=== PATIENT | female | born 1945 | race Caucasian/White ===

== ENCOUNTER 2017-06-14 09:43 | Emergency (ER) | payer MEDICARE, OTHER ==
[2017-06-14] MEDS ORDERED: Ketorolac 30 MG/ML SDV IVPUSH ONE (10:27)
[2017-06-14] MEDS ORDERED: Ketorolac 30 MG/ML SDV ONE (10:57)
[2017-06-14] MEDS ORDERED: Diatrizoate Meglumine/Diatrizoate Sodium 37% 30 ML Bottle PO SCH (11:00)
[2017-06-14] MEDS ORDERED: HYDROmorphone 2 MG/ML Syringe IVPUSH ONE ×2 (11:21→12:50)
[2017-06-14] MEDS ORDERED: Ondansetron 4 MG/2 ML SDV IVPUSH ONE ×2 (11:22→11:54)
[2017-06-14] MEDS ORDERED: Sodium Chloride 0.9% 1,000 ML IV ONE (11:23)
[2017-06-14] MEDS ORDERED: HYDROmorphone 2 MG/ML Syringe ONE ×2 (11:26→11:54)
[2017-06-14] MEDS: Ondansetron 4 MG/2 ML SDV ONE ×2 (11:54→12:57)
[2017-06-14] MEDS ORDERED: Ondansetron 4 MG/2 ML SDV ONE (11:54)
[2017-06-14] MEDS ORDERED: Piperacillin/Tazobactam 3.375 GM in Sodium Chloride 0.9% 100 ML IV SCH (13:45)
[2017-06-14] MEDS ORDERED: Pantoprazole 40 MG Vial ONE (14:09)
[2017-06-14] MEDS ORDERED: Pantoprazole 80 MG in Sodium Chloride 0.9% 100 ML IV ONE (14:10)
--- NOTE | 2017-06-14 14:31 | EDM.PDOC ---
[id number]: ABD pain Time Seen by Provider: 06/14/17 10:05 Source of Information: Reports: Patient History Limitations: Reports: No Limitations - History of Present Illness INITIAL COMMENTS - FREE TEXT/NARRATIVE: This is a 72yo F here for severe abdominal pain for the past 18hours. Patient states the pain is extremely severe and is writhing in pain. She has the pain every 3-4 minutes and it fluctuates and then improves in colicky fashion. Patient has never had this 10/10 pain of the lower abdomen before. She feels it is diffuse. Patient has not been eating well and has thrown up the past 18 hours. She denies prior abdominal issues or surgery but has a diagnosis of diverticulitis. Patient doctors in [place] and has been to [facility] before. Patient is alert and oriented in severe pain. Onset Date: 06/13/17 Onset Time: 19:00 (This is when the severe pain started but the mild pain and discomfort was 3 days ago) Duration: Colic, Getting Worse, Intermittent, Recurring, Waxing/Waning Location: Reports: Abdomen Quality: Reports: Ache, Sharp, Stabbing Severity: Severe Improves with: Reports: None Worsens with: Reports: None Associated Symptoms: Reports: Loss of Appetite, Nausea/Vomiting Bilateral Lower Abdomen Pain Score (Numeric/FACES): 5 - Related Data Allergies Allergy/AdvReac Type Severity Reaction Status Date / Time morphine Allergy Itching Verified 06/14/17 10:59 Morpholine Analogues Allergy Itching Verified 06/14/17 10:59 Sulfa (Sulfonamide Allergy itchings Verified 06/14/17 10:58 Antibiotics) and swollen throat Home Meds: Home Meds Allopurinol [Zyloprim] 300 mg PO BID 06/14/17 [History] Aspirin 81 mg PO DAILY 06/14/17 [History] Cetirizine [ZyrTEC] 10 mg PO DAILY 06/14/17 [History] Cyclobenzaprine [Flexeril] 10 mg PO TID PRN 06/14/17 [History] Enalapril [Vasotec] 5 mg PO DAILY 06/14/17 [History] Gabapentin [Neurontin] 300 mg PO BID 06/14/17 [History] Ketoprofen 200 mg PO DAILY 06/14/17 [History] Liraglutide [Victoza] 1.8 mg SUBCUT DAILY 06/14/17 [History] [place]-3 Fatty Acids [Maxepa] 1,000 mg PO DAILY 06/14/17 [History] Polyethylene Glycol 3350 [MiraLAX] 17 gm PO DAILY PRN 06/14/17 [History] Simvastatin [Zocor] 20 mg PO BEDTIME 06/14/17 [History] Triamcinolone Acetonide [Triamcinolone Acetonide 0.5%] 1 TOP BID 06/14/17 [ History] Triamterene/Hydrochlorothiazid [Triamterene-HCTZ 37.5-25 MG] 2 cap PO DAILY [History] metFORMIN [Glucophage XR] 500 mg PO BIDMEALS 06/14/17 [History] Past Medical History HEENT History: Reports: Cataract Cardiovascular History: Reports: Hypertension Gastrointestinal History: Reports: Diverticulosis Genitourinary History: Reports: UTI, Recurrent [employer] History: Reports: Dysfunctional Uterine Bleeding Musculoskeletal History: Reports: Arthritis Endocrine/Metabolic History: Reports: Diabetes, Type II Dermatologic History: Reports: Other (See Below) Other Dermatologic History: 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 - Infectious Disease History Infectious Disease History: Reports: C-Difficile - Past Surgical History HEENT Surgical History: Reports: Cataract Surgery GI Surgical History: Reports: Colonoscopy Endocrine Surgical History: Reports: None Musculoskeletal Surgical History: Reports: Joint Replacement, Knee Replacement, Other (See Below) Other Musculoskeletal Surgeries/Procedures:: Hardware in back, maria d TKA, Fx ankle with sx Social & Family History - Family History Family Medical History: Noncontributory ED ROS GENERAL - Review of Systems Review Of Systems: ROS reveals no pertinent complaints other than HPI. ED EXAM, GI/ABD - Physical Exam Exam: See Below Exam Limited By: No Limitations General Appearance: Alert, WD/WN, Severe Distress, Obese Eyes: Bilateral: EOMI Ears: Normal External Exam Nose: Normal Inspection Throat/Mouth: Normal Inspection, Normal Lips, Normal Teeth Head: Atraumatic, Normocephalic Neck: Normal Inspection, Supple, Non-Tender Respiratory/Chest: No Respiratory Distress, Lungs Clear, Normal Breath Sounds Cardiovascular: Normal Peripheral Pulses, Regular Rate, Rhythm GI/Abdominal Exam: Soft (but lots of subcutaneous fat), Tender, Abnormal Bowel Sounds (left side decreased with right side increased). No: Mass Extremities: Normal Inspection Neurological: Alert, Oriented Psychiatric: Normal Affect, Normal Mood Skin Exam: Warm, Dry, Intact Course - Vital Signs Last Recorded V/S: Last Vital Signs Temp 35.5 C 06/14/17 14:35 Pulse 122 H 06/14/17 14:35 Resp 20 06/14/17 14:35 BP 84/46 L 06/14/17 14:35 Pulse Ox 99 06/14/17 14:35 - Orders/Labs/Meds Labs: Laboratory Tests 06/14/17 06/14/17 06/14/17 Range/Units 10:45 10:45 10:45 WBC 17.5 H (4.0-11.0) K/uL RBC 3.52 L (3.80-5.80) M/uL Hgb 10.5 L (11.5-16.5) g/dL Hct 32.2 L (37.0-47.0) % MCV 92 (76-96) fL MCH 29.8 (27.0-32.0) pg MCHC 32.6 (31.0-35.0) g/dL RDW 14.9 (11.0-16.0) % Plt Count 287 (150-500) K/uL MPV 10.2 H (6.0-10.0) fL Neut % (Auto) 79.8 H (45.0-70.0) % Lymph % (Auto) 12.5 L (20.0-40.0) % [place] % (Auto) 7.3 (3.0-10.0) % Eos % (Auto) 0.2 L (1.0-5.0) % Baso % (Auto) 0.2 (0.0-0.5) % Neut # (Auto) 13.99 H (2.00-7.50) K/uL Lymph # (Auto) 2.19 (1.50-4.00) K/uL [place] # (Auto) 1.28 H (0.20-0.80) K/uL Eos # (Auto) 0.04 (0.04-0.40) K/uL Baso # (Auto) 0.04 (0.02-0.10) K/uL PT 9.9 (9.0-11.5) sec INR 1.0 (1.0-3.5) Sodium 139 (136-145) mmol/L Potassium 4.4 (3.5-5.1) mmol/L Chloride 103 (98-107) mmol/L Carbon Dioxide 19.7 L (21.0-32.0) mmol/L Anion Gap 20.7 H (5.0-15.0) mmol/L BUN 60 H* (8-26) mg/dL Creatinine 1.15 H (0.55-1.02) mg/dL Est Cr Clr Drug Dosing 40.38 mL/min Estimated GFR (MDRD) 47 L (>60) MLS/MIN BUN/Creatinine Ratio 52.2 H (6-25) Glucose 305 H (74-100) mg/dL Lactic Acid (0.90-1.70) mmol/L Calcium 8.9 (8.5-10.1) mg/dL Total Bilirubin 0.5 (0.0-1.0) mg/dL AST 17 (15-37) U/L ALT 33 (12-78) U/L Alkaline Phosphatase 54 (46-116) U/L Total Protein 6.8 (6.4-8.2) g/dL Albumin 3.2 L (3.4-5.0) g/dL Globulin 3.6 (2.2-4.2) g/dL Albumin/Globulin Ratio 0.9 (0.8-2.0) Lipase 320 (73-393) U/L Urine Color Urine Appearance (CLEAR) Urine pH (5.0-8.0) Ur Specific [place] (1.003-1.030) Urine Protein (NEGATIVE) mg/dL Urine Glucose (UA) (NEGATIVE) mg/dL Urine Ketones (NEGATIVE) mg/dL Urine Occult Blood (NEGATIVE) Urine Nitrite (NEGATIVE) Urine Bilirubin (NEGATIVE) Urine Urobilinogen (0.2-1.0) E.U./dL Ur Leukocyte Esterase (NEGATIVE) Urine RBC /HPF Urine WBC /HPF Ur Squamous Epith Cells /HPF Urine Bacteria /HPF Hyaline Casts /HPF 06/14/17 06/14/17 Range/Units 10:45 11:05 WBC (4.0-11.0) K/uL RBC (3.80-5.80) M/uL Hgb (11.5-16.5) g/dL Hct (37.0-47.0) % MCV (76-96) fL MCH (27.0-32.0) pg MCHC (31.0-35.0) g/dL RDW (11.0-16.0) % Plt Count (150-500) K/uL MPV (6.0-10.0) fL Neut % (Auto) (45.0-70.0) % Lymph % (Auto) (20.0-40.0) % [place] % (Auto) (3.0-10.0) % Eos % (Auto) (1.0-5.0) % Baso % (Auto) (0.0-0.5) % Neut # (Auto) (2.00-7.50) K/uL Lymph # (Auto) (1.50-4.00) K/uL [place] # (Auto) (0.20-0.80) K/uL Eos # (Auto) (0.04-0.40) K/uL Baso # (Auto) (0.02-0.10) K/uL PT (9.0-11.5) sec INR (1.0-3.5) Sodium (136-145) mmol/L Potassium (3.5-5.1) mmol/L Chloride (98-107) mmol/L Carbon Dioxide (21.0-32.0) mmol/L Anion Gap (5.0-15.0) mmol/L BUN (8-26) mg/dL Creatinine (0.55-1.02) mg/dL Est Cr Clr Drug Dosing mL/min Estimated GFR (MDRD) (>60) MLS/MIN BUN/Creatinine Ratio (6-25) Glucose (74-100) mg/dL Lactic Acid 6.08 H (0.90-1.70) mmol/L Calcium (8.5-10.1) mg/dL Total Bilirubin (0.0-1.0) mg/dL AST (15-37) U/L ALT (12-78) U/L Alkaline Phosphatase (46-116) U/L Total Protein (6.4-8.2) g/dL Albumin (3.4-5.0) g/dL Globulin (2.2-4.2) g/dL Albumin/Globulin Ratio (0.8-2.0) Lipase (73-393) U/L Urine Color Yellow Urine Appearance Clear (CLEAR) Urine pH 5.5 (5.0-8.0) Ur Specific [place] 1.015 (1.003-1.030) Urine Protein Negative (NEGATIVE) mg/dL Urine Glucose (UA) Negative (NEGATIVE) mg/dL Urine Ketones 40 H (NEGATIVE) mg/dL Urine Occult Blood Negative (NEGATIVE) Urine Nitrite Positive H (NEGATIVE) Urine Bilirubin Negative (NEGATIVE) Urine Urobilinogen 0.2 (0.2-1.0) E.U./dL Ur Leukocyte Esterase Small H (NEGATIVE) Urine RBC Not seen /HPF Urine WBC 10-20 H /HPF Ur Squamous Epith Cells Moderate /HPF Urine Bacteria Moderate H /HPF Hyaline Casts Few /HPF Meds: Medications Discontinued Medications Generic Name Dose Route Start Last Admin Trade Name Freq PRN Reason Stop Dose Admin Diatrizoate Meglum/Diatrizoate Sod 30 ml 06/14/17 11:00 06/14/17 11:08 Gastrografin 37% PO 30 ml . DIRECTED EMILY Administration Hydromorphone HCl 1 mg 06/14/17 11:21 06/14/17 11:23 Dilaudid IVPUSH 06/14/17 11:22 1 mg ONETIME ONE Administration Hydromorphone HCl Confirm 06/14/17 11:26 06/14/17 11:35 Dilaudid Administered 06/14/17 11:27 Not Given Dose 2 mg .ROUTE .STK-MED ONE Hydromorphone HCl Confirm 06/14/17 11:54 06/14/17 12:21 Dilaudid Administered 06/14/17 11:55 Not Given Dose 2 mg .ROUTE .STK-MED ONE Hydromorphone HCl 1 mg 06/14/17 12:50 06/14/17 12:50 Dilaudid IVPUSH 06/14/17 12:51 1 mg ONETIME ONE Administration Sodium Chloride 1,000 mls @ 350 mls/hr 06/14/17 11:23 06/14/17 14:58 Normal Saline IV 06/14/17 14:14 Infused .BOLUS ONE Infusion Piperacillin Sod/Tazobactam 100 mls @ 100 mls/hr 06/14/17 13:45 06/14/17 14: 31 Sod 3.375 gm/ Sodium Chloride IV 100 mls/hr Q6H EMILY Administration Pantoprazole Sodium 80 mg/ 100 mls @ 200 mls/hr 06/14/17 14:10 06/14/17 14:13 Sodium Chloride IV 06/14/17 14:39 Not Given .BOLUS ONE Ketorolac Tromethamine 30 mg 06/14/17 10:27 06/14/17 10:56 Toradol IVPUSH 06/14/17 10:28 30 mg ONETIME ONE Administration Ketorolac Tromethamine Confirm 06/14/17 10:57 06/14/17 10:56 Toradol Administered 06/14/17 10:58 Not Given Dose 30 mg .ROUTE .STK-MED ONE Ondansetron HCl 8 mg 06/14/17 11:22 06/14/17 11:33 Zofran IVPUSH 06/14/17 11:23 8 mg ONETIME ONE Administration Ondansetron HCl Confirm 06/14/17 11:35 06/14/17 12:57 Zofran Administered 06/14/17 11:36 Not Given Dose 8 mg .ROUTE .STK-MED ONE Ondansetron HCl Confirm 06/14/17 11:54 06/14/17 12:56 Zofran Administered 06/14/17 11:55 Not Given Dose 4 mg .ROUTE .STK-MED ONE Ondansetron HCl 4 mg 06/14/17 11:54 06/14/17 12:56 Zofran IVPUSH 06/14/17 11:55 4 mg ONETIME ONE Administration Pantoprazole Sodium Confirm 06/14/17 14:09 06/14/17 14:13 Protonix Iv Administered 06/14/17 14:10 80 mg Dose Administration 80 mg .ROUTE .STK-MED ONE - Re-Assessments/Exams Free Text/Narrative Re-Assessment/Exam: 06/14/17 1415 Patient had a new episode of Darker colored hematemesis. This is a new finding. BP stable but low. Continuing bolus of 2nd bag 1000mL of 0.9% NS at this time. Called [facility] and informed Dr. Miner of update - states he has discussed case with IM and ICU and awaiting her arrival. IV protonix 80mg to be given. Departure - Departure Time of Disposition: 15:00 Disposition: DC/Tfer to Acute Hospital 02 Condition: Critical Clinical Impression: Hematemesis with nausea, Acute abdomen, Mass of stomach, Sudden onset of severe abdominal pain, Elevated lactic acid level, Renal dysfunction Elevated WBC count Qualifiers: Leukocytosis type: unspecified Qualified Code(s): D72.829 - Elevated white blood cell count, unspecified Anemia Qualifiers: Anemia type: other cause Other causes of anemia: other cause, not classified Qualified Code(s): D64.89 - Other specified anemias Diabetes Qualifiers: Diabetes mellitus type: type 2 Diabetes mellitus complication status: without complication Diabetes mellitus lobsterman insulin use: without mcc use Qualified Code(s): E11.9 - Type 2 diabetes mellitus without complications UTI (urinary tract infection) Qualifiers: Urinary tract infection type: site unspecified Hematuria presence: without hematuria Qualified Code(s): N39.0 - Urinary tract infection, site not specified - Discharge Information Referrals: PCP,None [Primary Care Provider] - Forms: ED Department Discharge, ED Return to Work/School Form - Problem List Review Problem List Initiated/Reviewed/Updated: Yes - Assessment/Plan Plan: Radha consulted with Dr. Morrison and agreement in that patient requires a higher level of care for possible bowel ischemia and possibly mesenteric ischemia. [facility] contacted and they are on diversion. Patient to be transferred to [facility] for further surgical intervention and management. Patient and counseled and agree with plan of care.
[2017-06-14 14:35] VITALS: BP 84/46
--- NOTE | 2017-06-14 15:13 | CT ---
DATE OF SERVICE: 06/14/17 CLINICAL DATA: Severe Abdominal pain - diffuse UNENHANCED ABDOMEN AND PELVIS CT Multislice acquisition through the abdomen and pelvis without IV, but with oral contrast was performed. No priors. There are mild atelectatic changes in the dependent portion of both lower lungs and in both lung bases. The unenhanced liver appears normal. No focal hepatic lesions. The gallbladder appears normal. The spleen appears normal. The pancreas appears normal. The right and left adrenals appear normal. There is atrophy of both kidneys. There is a 9 mm no other renal calculus in the lower pole of the left kidney. No nephrocalcinosis or nephrolithiasis on the right. No hydronephrosis or hydroureter. There is a small amount of fluid within the bladder. It appears normal. The patient is status post hysterectomy. The appendix is not dilated. No evidence of appendicitis. There is mild diverticulosis of the descending colon and moderate diverticulosis of the sigmoid colon. No evidence of diverticulitis. Stomach is moderately distended and contrast filled. There are 2 soft tissue and gas density filling defects noted within the stomach. These may be just ingested food. The possibility of a bezoar should be considered. I cannot completely exclude a mass. Gastroscopy should be considered. No free air. No free fluid. No dilated loops of bowel. No adenopathy. No aortic aneurysm. There is a small umbilical hernia containing fat. IMPRESSION: Moderately distended stomach. Multiple filling defects within the stomach containing gas. These are probably ingested food. The possibility of bezoar should be considered. I cannot completely exclude a polypoid mass. Gastroscopy should be considered. Other findings as discussed above. [id number] [facility]
== END 2017-06-14 14:55 ==
LOC: LB.ED 09:43
DX: K92.0 Hematemesis (principal); K31.89 Other diseases of stomach and duodenum; R74.0 Nonspecific elevation of levels of transaminase and lactic acid dehydrogenase [LDH]; N28.9 Disorder of kidney and ureter, unspecified; D64.89 Other specified anemias; D72.829 Elevated white blood cell count, unspecified; E11.9 Type 2 diabetes mellitus without complications; I10 Essential (primary) hypertension; M19.90 Unspecified osteoarthritis, unspecified site; Z98.49 Cataract extraction status, unspecified eye; Z89.612 Acquired absence of left leg above knee; Z89.611 Acquired absence of right leg above knee; Z79.84 Long term (current) use of oral hypoglycemic drugs; Z79.899 Other long term (current) drug therapy; Z79.82 Long term (current) use of aspirin; Z88.5 Allergy status to narcotic agent; Z88.2 Allergy status to sulfonamides
CPT/HCPCS: 36415; 74176; 80053; 81001; 83605; 83690; 85025; 85610; 87040; 87086; 87088; 93005; 96374; 96375; 96376; 99285; A0425; A0429; A9270; C9113; J1170; J1885; J2405; J2543; J7030; J7040; 87186